=== PATIENT | male | born 1995 | race African-American/Black ===

== ENCOUNTER 2016-10-02 20:08 | Emergency (ER) | payer OTHER ==
[~2016-10-02] VITALS: Ht 170.2 cm; Wt 96.6 kg
[2016-10-02] MEDS ORDERED: COLD & FLU FIG1 EACH (20:17)
[2016-10-02] MEDS ORDERED: ZYRTEC10 M5 PO (20:18)
[2016-10-02] MEDS ORDERED: ACCUNEB SO1.25 MG/1 (20:19)
[2016-10-02 20:28] LABS: ABSOLUTE NEUTROPHILS 4.7 thou/uL (1.4-8.2); BASOPHILS 0.3 % (0.0-2.0); EOSINOPHILS 9.6 % (0.0-3.0); HEMATOCRIT 41.7 % (42.0-52.0); HEMOGLOBIN 14.4 gm/dL (14.0-18.0); LYMPHOCYTES 38.1 % (24.0-44.0); MCH 30.6 pg (26.0-34.0); MCHC 34.6 g/dL (28.0-37.0); MCV 88.6 fL (80.0-100.0); MONOCYTES 8.9 % (1.0-8.0); PLATELET COUNT 322 thou/uL (150-400); POLYS 43.1 % (36.0-66.0); RDW 12.5 % (10.5-14.5); WBC 10.8 thou/uL (4.0-11.0)
[2016-10-02 20:29] LABS: MANUAL DIFF NO
[2016-10-02 20:35] LABS: CREATININE 1.2 mg/dL (0.7-1.3); POTASSIUM 3.7 mmol/L (3.5-5.1)
[2016-10-02] MEDS ORDERED: TESSALON PERLE100 MG PO (20:43)
[2016-10-02] MEDS ORDERED: PREDNISONE 20 M20 MG PO (20:43)
[2016-10-02] MEDS ORDERED: VENTOLIN HFA 1818 GM INH (20:43)
[2016-10-02] MEDS ORDERED: IBUPROFEN 600600 M1 PO (21:05)
[2016-10-02 21:45] VITALS: BP 104/60
== END 2016-10-02 21:48 | disposition home or self-care (01) ==
LOC: ER 20:08
PROVIDERS: Nurse Practitioner
DX: J45.901 Unspecified asthma with (acute) exacerbation (principal)

== ENCOUNTER 2018-05-15 13:51 | Emergency (ER) | payer OTHER ==
[~2018-05-15] VITALS: Ht 172.7 cm; Wt 97.5 kg
--- NOTE | ~2018-05-15 | EKG ---
[address] [address] ELECTROCARDIOGRAM REPORT Name: MOLLY SHERIFF Room #: [facility] [id number] Admission: 05/15/18 Attend Phys: Discharge: 05/15/18 Date of : [birth year] Report #: [id number] THIS REPORT FOR: //name// [facility] ED Test Date: 2018-05-15 Test Time: 14:25:14 Pat Name: MOLLY BLANCO Department: Room: Gender: M Application Security Engineer: Julito LOONEY : 1995 Requested By: Polina Nash Order Number: [id number] MD: Jamaal Torres Measurements Intervals [place] Rate: 78 P: 69 AK: 188 QRS: 58 QRSD: 81 T: 27 QT: 331 QTc: 377 Interpretive Statements Sinus rhythm ST elevation, secondary to early repolarization No previous ECG available for comparison Electronically Signed On 05-15-2018 20:50:16 CAVALRY OFFICER by Jamaal Torres [email or web address] <ELECTRONICALLY SIGNED> By: Jamaal Torres MD 05/15/182049 1425 1425 MD BERNARDA Willingham
[~2018-05-15 13:51] MED LIST: ACCUNEB SO1.25 MG/1; COLD & FLU FIG1 EACH; IBUPROFEN 600600 M1 PO; PREDNISONE 20 M20 MG PO; TESSALON PERLE100 MG PO; VENTOLIN HFA 1818 GM INH; ZYRTEC10 M5 PO
[2018-05-15 14:07] VITALS: BP 142/86
[2018-05-15] MEDS ORDERED: CELLCEPT500 MG PO (14:44)
[2018-05-15] MEDS ORDERED: CYCLOSPORINE N PO (14:45)
[2018-05-15] MEDS ORDERED: PRED FORTE 1% EY5 M1 INTRAOCULR (14:45)
[2018-05-15] MEDS ORDERED: PEPCID20 MG PO (15:40)
== END 2018-05-15 16:33 | disposition home or self-care (01) ==
LOC: ER 13:51
DX: K21.9 Gastro-esophageal reflux disease without esophagitis (principal); J45.909 Unspecified asthma, uncomplicated